=== PATIENT | female | born 1985 | race Caucasian/White ===

== ENCOUNTER 2016-12-17 10:35 | Inpatient (IN) | payer BC ==
--- NOTE | 2016-12-17 11:13 | PCM.LDHP ---
L&D History of Present Illness - General Date of Service: 12/17/16 Admit Problem/Dx: Admission Diagnosis/Problem Admission Diagnosis/Problem Source of Information: Patient History Limitations: Reports: No Limitations - History of Present Illness Introduction:: 31-year-old to 0 to JONATAN 01/01/17 estimated gestational age 37 weeks 6 days lives an [place] presented to labor and delivery having contractions every 2-3 minutes GBS is positive blood type O positive, antibody screen negative, hemoglobin hematocrit on 06/07/16 14.5/40.9, platelets 251,000, rubella immune, hep B surface antigen nonreactive HIV negative GC and chlamydia not detected. Urine culture normal. Cervix 2-3 cm dilated 50% effaced posterior soft? Cephalic presentation floating confirmed by bedside ultrasound Improves with: Reports: None Worsens with: Reports: None Associated Symptoms: Reports: N Past Medical History : 3 Para: 0 (0202) H&P Review of Systems - Review of Systems: Review Of Systems: See Below General: Reports: No Symptoms HEENT: Reports: No Symptoms Pulmonary: Reports: No Symptoms Cardiovascular: Reports: No Symptoms Gastrointestinal: Reports: No Symptoms Genitourinary: Reports: No Symptoms Musculoskeletal: Reports: No Symptoms Skin: Reports: No Symptoms Psychiatric: Reports: No Symptoms Neurological: Reports: No Symptoms Hematologic/Lymphatic: Reports: No Symptoms Immunologic: Reports: No Symptoms L&D Exam - Exam Exam: See Below - OB Specific Fundal Height In cm: 37 Contraction Duration (sec): 60 Contraction Frequency (min): 3 Contraction Intensity: Mild to Moderate Movement: Active Heart Tones: Present Heart Tones per Min: 140 Heart Rate (FHR) Variability: Moderate (6-25 bmp) Presentation: Vertex - Pearce Score Pearce Score Cervix Position: Posterior Pearce Score Consistency: Soft Pearce Score Effacement: 31-50% Pearce Score Dilation: 1-2 cm Pearce Score 's Station: -3 Pearce Score Total: 4 - Exam General: Alert, Oriented HEENT: Conjunctiva Clear, Mucosa Moist & [place], PERRLA Neck: Supple, Trachea Midline Lungs: Clear to Auscultation, Normal Respiratory Effort Cardiovascular: Regular Rate, Regular Rhythm GI/Abdominal Exam: Normal Bowel Sounds, Soft, Non-Tender, No Organomegaly, No Distention, No Abnormal Bruit, No Mass, Pelvis Stable Genitourinary: Normal external exam, Normal bimanual exam, Normal speculum exam Back Exam: Normal Inspection, Full Range of Motion Extremities: Normal Inspection, Normal Range of Motion, Non-Tender, No Pedal Edema, Normal Capillary Refill Skin: Warm, Dry, Intact Psychiatric: Alert, Normal Affect, Normal Mood - Problem List (1) 37 weeks gestation of SNOMED Code(s): 85219498 ICD Code: Z3A.37 - 37 WEEKS GESTATION OF Status: Acute Current Visit: Yes (2) Carrier of group B Streptococcus SNOMED Code(s): 2556438799186 ICD Code: Z22.330 - CARRIER OF GROUP B STREPTOCOCCUS Status: Acute Current Visit: Yes (3) History of delivery, currently in third trimester SNOMED Code(s): 46298406, 29457781 ICD Code: O09.213 - SUPRVSN OF PREG W HISTORY OF PRE-TERM LABOR, THIRD TRIMESTER Status: Acute Current Visit: Yes Problem List Initiated/Reviewed/Updated: No Assessment/Plan Comment:: Will watch patient to see if contractions persist and since she lives an [place] will need to stay here through the night to make sure no problems.
[2016-12-17] MEDS ORDERED: Acetaminophen 325 MG Tab PO PRN (11:17)
[2016-12-17] MEDS ORDERED: Sodium Chloride 0.9% 10 ML Syringe FLUSH PRN ×2 (11:17→15:14)
[2016-12-17] MEDS ORDERED: Ondansetron 4 MG/2 ML SDV IVPUSH PRN ×2 (11:17→13:50)
[2016-12-17] MEDS ORDERED: Lactated Ringers 500 ML IV ONE (11:36)
[2016-12-17] MEDS ORDERED: Ampicillin 2 GM in Sodium Chloride 0.9% 100 ML IV ONE (12:00)
--- NOTE | 2016-12-17 13:35 | PCM.PREANE ---
Preanesthetic Assessment - Procedure Proposed Procedure: Labor Epidural - Anesthesia/Transfusion/Family Hx Anesthesia History: Prior Anesthesia Without Reaction Family History of Anesthesia Reaction: No Transfusion History: No Prior Transfusion(s) - Review of Systems General: No Symptoms Pulmonary: No Symptoms Cardiovascular: No Symptoms Gastrointestinal: No Symptoms Neurological: No Symptoms Other: Reports: None - Physical Assessment NPO Status Date: 12/17/16 Pulse: 84 O2 Sat by Pulse Oximetry: 96 Respiratory Rate: 20 Blood Pressure: 106/57 Temperature: 37.0 C Height: 1.57 m Weight: 68.765 kg ASA Class: 2 Mental Status: Alert & Oriented x3 Airway Class: Mallampati = 2 Dentition: Reports: Normal Dentition Thyro-Mental Finger Breadths: 3 Mouth Opening Finger Breadths: 3 ROM/Head Extension: Full Lungs: Clear to Auscultation, Normal Respiratory Effort Cardiovascular: Regular Rate, Regular Rhythm - Lab Values: Laboratory Last Values WBC 14.85 K/mm3 (3.98-10.04) H 12/17/16 11:30 RBC 3.91 M/mm3 (3.98-5.22) L 12/17/16 11:30 Hgb 11.7 gm/L (11.2-15.7) 12/17/16 11:30 Hct 34.8 % (34.1-44.9) 12/17/16 11:30 MCV 89.0 fl (79.4-94.8) 12/17/16 11:30 MCH 29.9 pg (25.6-32.2) 12/17/16 11:30 MCHC 33.6 g/dl (32.2-35.5) 12/17/16 11:30 RDW Std Deviation 42.2 fL (36.4-46.3) 12/17/16 11:30 Plt Count 302 K/mm3 (182-369) 12/17/16 11:30 MPV 9.9 fl (9.4-12.3) 12/17/16 11:30 Neut % (Auto) 65.6 % (34.0-71.1) 12/17/16 11:30 Lymph % (Auto) 23.9 % (19.3-51.7) 12/17/16 11:30 [place] % (Auto) 8.6 % (4.7-12.5) 12/17/16 11:30 Eos % (Auto) 0.9 (0.7-5.8) 12/17/16 11:30 Baso % (Auto) 0.3 % (0.1-1.2) 12/17/16 11:30 Neut # (Auto) 9.74 K/mm3 (1.56-6.13) H 12/17/16 11:30 Lymph # (Auto) 3.55 K/mm3 (1.18-3.74) 12/17/16 11:30 [place] # (Auto) 1.28 K/mm3 (0.24-0.36) H 12/17/16 11:30 Eos # (Auto) 0.14 K/mm3 (0.04-0.36) 12/17/16 11:30 Baso # (Auto) 0.04 K/mm3 (0.01-0.08) 12/17/16 11:30 Blood Type O POSITIVE 12/17/16 11:30 Gel Antibody Screen Negative 12/17/16 11:30 - Allergies Allergies/Adverse Reactions: Allergies Allergy/AdvReac Type Severity Reaction Status Date / Time No Known Allergies Allergy Verified 12/17/16 12:21 - Blood Blood Available: No Product(s) Available: None - Acknowledgements Anesthesia Type Planned: Epidural Pt an Appropriate Candidate for the Planned Anesthesia: Yes Alternatives and Risks of Anesthesia Discussed w Pt/Guardian: Yes Pt/Guardian Understands and Agrees with Anesthesia Plan: Yes PreAnesthesia Questionnaire - SUBSTANCE USE Smoking Status *Q: Never Smoker Tobacco Use Within Last Twelve Months: No Second Hand Smoke Exposure: No Recreational Drug Use History: No - HOME MEDS Home Medications: Home Meds Vit W-Ca,Fe,FA(<1 mg) [ Vitamins] 1 tab PO DAILY 12/17/16 [ History] - CURRENT (IN HOUSE) MEDS Current Meds: Current Medications Acetaminophen (Tylenol) 650 mg PO Q4H PRN PRN Reason: Pain (mild 1-3) Lactated Ringer's (Ringers, Lactated) 1,000 mls @ 125 mls/hr IV ASDIRECTED NORA Ampicillin Sodium 1 gm/ Sodium (Chloride) 100 mls @ 200 mls/hr IV Q4H NORA Ondansetron HCl (Zofran) 4 mg IVPUSH Q4H PRN PRN Reason: Nausea/Vomiting Sodium Chloride (Saline Flush) 10 ml FLUSH ASDIRECTED PRN PRN Reason: Keep Vein Open Discontinued Medications Ampicillin Sodium 2 gm/ Sodium (Chloride) 100 mls @ 200 mls/hr IV ONETIME ONE Stop: 12/17/16 12:29 Lactated Ringer's (Ringers, Lactated) 500 mls @ 500 mls/hr IV .BOLUS ONE Stop: 12/17/16 12:35
[2016-12-17] MEDS ORDERED: diphenhydrAMINE 50 MG/ML SDV IVPUSH PRN (13:50)
[2016-12-17] MEDS ORDERED: ePHEDrine 50 MG/ML SDV IVPUSH PRN (13:50)
[2016-12-17] MEDS ORDERED: fentaNYL 100 MCG/2 ML SDV EPIDUR PRN (13:50)
[2016-12-17] MEDS ORDERED: Ampicillin 2 GM Vial ONE (13:51)
[2016-12-17] MEDS ORDERED: Sodium Chloride 0.9% 100 ML ONE (13:51)
[2016-12-17] MEDS ORDERED: Bupivacaine/fentaNYL/NS 100 ML Bag EPIDUR SCH (14:00)
[2016-12-17] MEDS: Lactated Ringers 1,000 ML IV SCH ×2 (14:17→14:51)
[2016-12-17] MEDS ORDERED: Lactated Ringers 1,000 ML IV SCH (15:15)
--- NOTE | 2016-12-17 15:47 | PCM.SN ---
- Free Text/Narrative Note: Amniotomy at 1543 hrs. Sunday12/17/16 clear fluid heart tones category 1 before and after amniotomy cephalic presentation at 0 station, complete.
[2016-12-17] MEDS ORDERED: Oxytocin 10 Units/1 ML SDV ONE (15:58)
[2016-12-17] MEDS ORDERED: Ampicillin 1 GM in Sodium Chloride 0.9% 100 ML IV SCH (16:00)
[2016-12-17] MEDS ORDERED: Oxytocin/Lactated Ringers 10 UNIT/1,000 ML BAG IV SCH (16:15)
--- NOTE | 2016-12-17 16:33 | PCM.DEL ---
L & D Note - General Info Date of Service: 12/17/16 Mother's Due Date: 01/01/17 - Delivery Note Labor: Spontaneous, Augmented by ARM (When patient was complete at -1/0 station amniotomy performed clear fluid) Delivery Outcome: Livebirth (Male liveborn Sunday12/17/2016 at 1611 hrs. MONTSE Apgars 8/9 30//30 grams 6 pounds 14.4 ounces) Delivery Method: Spontaneous Vaginal Delivery Delivery Mode: Spontaneous Presentation: Left Occiput Anterior (MONTSE) Nuchal Cord: None Prep: Povidone-Iodine (Betadine Anesthesia Type: Epidural Episiotomy Type: None Laceration: 1st Degree (Midline approximately 2.5 cm in length) Suture type: Other (Monocryl times one) Suture size: 3-0 Placenta: Intact, Spontaneous (Delivered spontaneously 1617 hrs. Sunday) Cord: 3 Vessels ( eccentric cord insertion intact examined discarded) Estimated Blood Loss: 250 Resuscitation Needed: No : Suctioned, Bulb Syringe, Stimulated, Warmed, [place] Used, Warmer Used Provider: Benji Oneil Score 1 min: 8 Score 5 min: 9 - Patient Data Vitals - Most Recent: Last Vital Signs Temp 98.6 F 12/17/16 13:47 Pulse 84 12/17/16 13:47 Resp 20 12/17/16 13:47 BP 106/57 L 12/17/16 13:47 Pulse Ox 96 12/17/16 13:47 Weight - Most Recent: 151 lb 9.6 oz Lab Results Last 24 Hours: Laboratory Results - last 24 hr 12/17/16 12/17/16 Range/Units 11:30 11:30 WBC 14.85 H (3.98-10.04) K/mm3 RBC 3.91 L (3.98-5.22) M/mm3 Hgb 11.7 (11.2-15.7) gm/L Hct 34.8 (34.1-44.9) % MCV 89.0 (79.4-94.8) fl MCH 29.9 (25.6-32.2) pg MCHC 33.6 (32.2-35.5) g/dl RDW Std Deviation 42.2 (36.4-46.3) fL Plt Count 302 (182-369) K/mm3 MPV 9.9 (9.4-12.3) fl Neut % (Auto) 65.6 (34.0-71.1) % Lymph % (Auto) 23.9 (19.3-51.7) % [place] % (Auto) 8.6 (4.7-12.5) % Eos % (Auto) 0.9 (0.7-5.8) Baso % (Auto) 0.3 (0.1-1.2) % Neut # (Auto) 9.74 H (1.56-6.13) K/mm3 Lymph # (Auto) 3.55 (1.18-3.74) K/mm3 [place] # (Auto) 1.28 H (0.24-0.36) K/mm3 Eos # (Auto) 0.14 (0.04-0.36) K/mm3 Baso # (Auto) 0.04 (0.01-0.08) K/mm3 Blood Type O POSITIVE Gel Antibody Screen Negative Med Orders - Current: Current Medications Acetaminophen (Tylenol) 650 mg PO Q4H PRN PRN Reason: Pain (mild 1-3) Diphenhydramine HCl (Benadryl) 25 mg IVPUSH Q6H PRN PRN Reason: Pruritis Ephedrine Sulfate (Ephedrine Sulfate) 5 mg IVPUSH ASDIRECTED PRN PRN Reason: Hypotension Fentanyl (Sublimaze) 100 mcg EPIDUR Q3H PRN PRN Reason: Pain Last Admin: 12/17/16 14:33 Dose: 100 mcg Fentanyl/Bupivacaine HCl (Fentanyl/Bupivacaine/Ns 2 Mcg-0.125% 100 Ml) 100 ml EPIDUR ASDIRECTED [facility] Last Admin: 12/17/16 14:34 Dose: 100 ml Lactated Ringer's (Ringers, Lactated) 1,000 mls @ 125 mls/hr IV ASDIRECTED [facility] Last Admin: 12/17/16 14:51 Dose: 999 mls/hr Ampicillin Sodium 1 gm/ Sodium (Chloride) 100 mls @ 200 mls/hr IV Q4H NORA Lactated Ringer's (Ringers, Lactated) 1,000 mls @ 100 mls/hr IV ASDIRECTED [facility] Oxytocin/Lactated Ringer's (Pitocin In Lr 10 Units/1,000 Ml) 10 unit in 1,000 mls @ 3,000 mls/hr IV ASDIRECTED NORA; 500 MUNITS/MIN PRN Reason: Protocol Ondansetron HCl (Zofran) 4 mg IVPUSH Q4H PRN PRN Reason: Nausea/Vomiting Ondansetron HCl (Zofran) 4 mg IVPUSH ONETIME PRN PRN Reason: Nausea/Vomiting Prenat Multivit/[place]/Iron/Folic Ac ( Plus Iron) 1 each PO DAILY NORA Sodium Chloride (Saline Flush) 10 ml FLUSH ASDIRECTED PRN PRN Reason: Keep Vein Open Sodium Chloride (Saline Flush) 10 ml FLUSH ASDIRECTED PRN PRN Reason: Keep Vein Open Discontinued Medications Ampicillin Sodium (Ampicillin) Confirm Administered Dose 2 gm .ROUTE .STK-MED ONE Stop: 12/17/16 13:52 Last Admin: 12/17/16 14:21 Dose: Not Given Ampicillin Sodium 2 gm/ Sodium (Chloride) 100 mls @ 200 mls/hr IV ONETIME ONE Stop: 12/17/16 12:29 Last Admin: 12/17/16 14:00 Dose: 200 mls/hr Lactated Ringer's (Ringers, Lactated) 500 mls @ 500 mls/hr IV .BOLUS ONE Stop: 12/17/16 12:35 Last Admin: 12/17/16 12:25 Dose: 500 mls/hr Sodium Chloride (Normal Saline) Confirm Administered Dose 100 mls @ as directed .ROUTE .STK-MED ONE Stop: 12/17/16 13:52 Last Admin: 12/17/16 14:21 Dose: Not Given Oxytocin (Pitocin) Confirm Administered Dose 10 unit .ROUTE .STK-MED ONE Stop: 12/17/16 15:59 Last Admin: 12/17/16 16:14 Dose: 10 unit - Problem List & Annotations (1) 37 weeks gestation of SNOMED Code(s): 31094576 Code(s): Z3A.37 - 37 WEEKS GESTATION OF Status: Acute Current Visit: Yes (2) Carrier of group B Streptococcus SNOMED Code(s): 5430904003887 Code(s): Z22.330 - CARRIER OF GROUP B STREPTOCOCCUS Status: Acute Current Visit: Yes (3) History of delivery, currently in third trimester SNOMED Code(s): 50418352, 67588029 Code(s): O09.213 - SUPRVSN OF PREG W HISTORY OF PRE-TERM LABOR, THIRD TRIMESTER Status: Acute Current Visit: Yes (4) First degree laceration of perineum, delivered, current hospitalization SNOMED Code(s): 023614096 Code(s): O70.0 - FIRST DEGREE PERINEAL LACERATION DURING DELIVERY Status: Acute Current Visit: Yes - Problem List Review Problem List Initiated/Reviewed/Updated: No - My Orders Last 24 Hours: My Active Orders 12/17/16 11:17 Patient Status [ADT] Routine Non Stress Test [RC] PER UNIT ROUTINE Vital Signs [RC] PER UNIT ROUTINE Acetaminophen [Tylenol] 650 mg PO Q4H PRN Ondansetron [Zofran] 4 mg IVPUSH Q4H PRN Sodium Chloride 0.9% [Saline Flush] 10 ml FLUSH ASDIRECTED PRN Electronic Heart Tones Ext w TOCO [WOMSER] Routine Peripheral IV Insertion Adult [OM.PC] Urgent Resuscitation Status Routine 12/17/16 11:19 Heart Tones [RC] ASDIRECTED Peripheral IV Care [RC] . DIRECTED 12/17/16 11:30 Lactated Ringers [Ringers, Lactated] 1,000 ml IV ASDIRECTED 12/17/16 13:45 Patient Status [ADT] Routine 12/17/16 15:14 Activity as Tolerated [RC] PFP Communication Order [RC] ASDIRECTED Heart Tones [RC] ASDIRECTED Notify Provider [RC] PFP Notify Provider [RC] PRN Peripheral IV Care [RC] . DIRECTED Vital Signs [RC] PER UNIT ROUTINE Sodium Chloride 0.9% [Saline Flush] 10 ml FLUSH ASDIRECTED PRN Electronic Heart Tones Ext w TOCO [WOMSER] Routine Electronic Heart Tones Internal [WOMSER] Per Unit Routine Peripheral IV Insertion Adult [OM.PC] Routine 12/17/16 15:15 Lactated Ringers [Ringers, Lactated] 1,000 ml IV ASDIRECTED 12/17/16 16:00 Ampicillin 1 gm Sodium Chloride 0.9% [Normal Saline] 100 ml IV Q4H 12/17/16 16:15 Oxytocin/Lactated Ringers [Pitocin in LR 10 Units/1,000 ML] 10 unit in 1,000 ml IV ASDIRECTED 12/17/16 Lunch Clear Liquid Diet [DIET] 12/18/16 09:00 Vit with Ca/FA/Iron [ Plus Iron] 1 each PO DAILY - Plan Plan:: Will watch patient to see if contractions persist and since she lives an [place] will need to stay here through the night to make sure no problems.
[2016-12-17] MEDS ORDERED: Docusate Sodium 100 MG Cap PO PRN (16:39)
[2016-12-17] MEDS ORDERED: Witch Hazel Medicated Pads 100/Jar TOP PRN (16:39)
[2016-12-17] MEDS ORDERED: Lanolin 100% Cream 7 GM Tube TOP PRN (16:39)
[2016-12-17] MEDS ORDERED: Benzocaine/Menthol 20%-0.5% Spray 56 GM Canister TOP PRN (16:39)
[2016-12-17] MEDS: Ibuprofen 600 MG Tab PO PRN (21:48)
[2016-12-17] MEDS ORDERED: Bupivacaine 0.25% 10 ML SDV ONE (22:22)
[2016-12-17] MEDS: Acetaminophen 325 MG Tab PO PRN (23:08)
[2016-12-18] MEDS: Ibuprofen 600 MG Tab PO PRN ×3 (02:25→20:34)
[2016-12-18] MEDS: Acetaminophen 325 MG Tab PO PRN ×2 (04:15→08:18)
--- NOTE | 2016-12-18 08:02 | PCM.SN ---
- Free Text/Narrative Note: day 1 Afebrile no heavy vaginal bleeding uterus involuting normally no leg cramping probably home tomorrow.
--- NOTE | 2016-12-18 08:35 | PCM48HPAN ---
Post Anesthesia Note - EVALUATION WITHIN 48HRS OF ANESTHETIC Vital Signs in Normal Range: Yes Patient Participated in Evaluation: Yes Respiratory Function Stable: Yes Airway Patent: Yes Cardiovascular Function Stable: Yes Hydration Status Stable: Yes Pain Control Satisfactory: Yes Nausea and Vomiting Control Satisfactory: Yes Mental Status Recovered: Yes
[2016-12-18] MEDS ORDERED: Prenatal Multivitamin with Calcium/Folic Acid/Iron Tab PO SCH (09:00)
[2016-12-19] MEDS: Ibuprofen 600 MG Tab PO PRN ×3 (04:32→13:34)
--- NOTE | 2016-12-19 09:54 | PCM.DCSUM1 ---
Discharge Summary - Hospital Course Free Text/Narrative:: [facility] LIVE L/D Delivery Note Patient Name: CARA WILLIAM Date of : 85 Patient Status: Inpatient Attending Provider: Benji Oneil Date: 12/17/16 16:28 Initialization Date: 12/17/16 16:28 L & D Note - General Info Date of Service: 12/17/16 Mother's Due Date: 01/01/17 - Delivery Note Labor: Spontaneous, Augmented by ARM (When patient was complete at -1/0 station amniotomy performed clear fluid) Delivery Outcome: Livebirth (Male liveborn Sunday12/17/2016 at 1611 hrs. MONTSE Apgars 8/9 30/30 grams 6 pounds 14.4 ounces) Infant Delivery Method: Spontaneous Vaginal Delivery Infant Delivery Mode: Spontaneous Presentation: Left Occiput Anterior (MONTSE) Nuchal Cord: None Prep: Povidone-Iodine (Betadine Anesthesia Type: Epidural Episiotomy Type: None Laceration: 1st Degree (Midline approximately 2.5 cm in length) Suture type: Other (Monocryl times one) Suture size: 3-0 Placenta: Intact, Spontaneous (Delivered spontaneously 1617 hrs. Sunday) Cord: 3 Vessels ( eccentric cord insertion intact examined discarded) Estimated Blood Loss: 250 Resuscitation Needed: No Mounds: Suctioned, Bulb Syringe, Stimulated, Warmed, [place] Used, Warmer Used Provider: Benji Oneil Score 1 min: 8 Score 5 min: 9 - Patient Data Vitals - Most Recent: Last Vital Signs Temp 98.6 F 12/17/16 13:47 Pulse 84 12/17/16 13:47 Resp 20 12/17/16 13:47 BP 106/57 L 12/17/16 13:47 Pulse Ox 96 12/17/16 13:47 Weight - Most Recent: 151 lb 9.6 oz Lab Results Last 24 Hours: Laboratory Results - last 24 hr 12/17/16 12/17/16 Range/Units 11:30 11:30 WBC 14.85 H (3.98-10.04) K/mm3 RBC 3.91 L (3.98-5.22) M/mm3 Hgb 11.7 (11.2-15.7) gm/L Hct 34.8 (34.1-44.9) % MCV 89.0 (79.4-94.8) fl MCH 29.9 (25.6-32.2) pg MCHC 33.6 (32.2-35.5) g/dl RDW Std Deviation 42.2 (36.4-46.3) fL Plt Count 302 (182-369) K/mm3 MPV 9.9 (9.4-12.3) fl Neut % (Auto) 65.6 (34.0-71.1) % Lymph % (Auto) 23.9 (19.3-51.7) % Alfalfa % (Auto) 8.6 (4.7-12.5) % Eos % (Auto) 0.9 (0.7-5.8) Baso % (Auto) 0.3 (0.1-1.2) % Neut # (Auto) 9.74 H (1.56-6.13) K/mm3 Lymph # (Auto) 3.55 (1.18-3.74) K/mm3 Alfalfa # (Auto) 1.28 H (0.24-0.36) K/mm3 Eos # (Auto) 0.14 (0.04-0.36) K/mm3 Baso # (Auto) 0.04 (0.01-0.08) K/mm3 Blood Type O POSITIVE Gel Antibody Screen Negative Med Orders - Current: Current Medications Acetaminophen (Tylenol) 650 mg PO Q4H PRN PRN Reason: Pain (mild 1-3) Diphenhydramine HCl (Benadryl) 25 mg IVPUSH Q6H PRN PRN Reason: Pruritis Ephedrine Sulfate (Ephedrine Sulfate) 5 mg IVPUSH ASDIRECTED PRN PRN Reason: Hypotension Fentanyl (Sublimaze) 100 mcg EPIDUR Q3H PRN PRN Reason: Pain Last Admin: 12/17/16 14:33 Dose: 100 mcg Fentanyl/Bupivacaine HCl (Fentanyl/Bupivacaine/Ns 2 Mcg-0.125% 100 Ml) 100 ml EPIDUR ASDIRECTED NORA Last Admin: 12/17/16 14:34 Dose: 100 ml Lactated Ringer's (Ringers, Lactated) 1,000 mls @ 125 mls/hr IV ASDIRECTED NORA Last Admin: 12/17/16 14:51 Dose: 999 mls/hr Ampicillin Sodium 1 gm/ Sodium (Chloride) 100 mls @ 200 mls/hr IV Q4H NORA Lactated Ringer's (Ringers, Lactated) 1,000 mls @ 100 mls/hr IV ASDIRECTED [facility] Oxytocin/Lactated Ringer's (Pitocin In Lr 10 Units/1,000 Ml) 10 unit in 1,000 mls @ 3,000 mls/hr IV ASDIRECTED NORA; 500 MUNITS/MIN PRN Reason: Protocol Ondansetron HCl (Zofran) 4 mg IVPUSH Q4H PRN PRN Reason: Nausea/Vomiting Ondansetron HCl (Zofran) 4 mg IVPUSH ONETIME PRN PRN Reason: Nausea/Vomiting Prenat Multivit/[place]/Iron/Folic Ac ( Plus Iron) 1 each PO DAILY [facility] Sodium Chloride (Saline Flush) 10 ml FLUSH ASDIRECTED PRN PRN Reason: Keep Vein Open Sodium Chloride (Saline Flush) 10 ml FLUSH ASDIRECTED PRN PRN Reason: Keep Vein Open Discontinued Medications Ampicillin Sodium (Ampicillin) Confirm Administered Dose 2 gm .ROUTE .STK-MED ONE Stop: 12/17/16 13:52 Last Admin: 12/17/16 14:21 Dose: Not Given Ampicillin Sodium 2 gm/ Sodium (Chloride) 100 mls @ 200 mls/hr IV ONETIME ONE Stop: 12/17/16 12:29 Last Admin: 12/17/16 14:00 Dose: 200 mls/hr Lactated Ringer's (Ringers, Lactated) 500 mls @ 500 mls/hr IV .BOLUS ONE Stop: 12/17/16 12:35 Last Admin: 12/17/16 12:25 Dose: 500 mls/hr Sodium Chloride (Normal Saline) Confirm Administered Dose 100 mls @ as directed .ROUTE .STK-MED ONE Stop: 12/17/16 13:52 Last Admin: 12/17/16 14:21 Dose: Not Given Oxytocin (Pitocin) Confirm Administered Dose 10 unit .ROUTE .STK-MED ONE Stop: 12/17/16 15:59 Last Admin: 12/17/16 16:14 Dose: 10 unit - Problem List & Annotations (1) 37 weeks gestation of SNOMED Code(s): 65093376 Code(s): Z3A.37 - 37 WEEKS GESTATION OF Status: Acute Current Visit: Yes (2) Carrier of group B Streptococcus SNOMED Code(s): 2960367859331 Code(s): Z22.330 - CARRIER OF GROUP B STREPTOCOCCUS Status: Acute Current Visit: Yes (3) History of delivery, currently in third trimester SNOMED Code(s): 62480580, 12902665 Code(s): O09.213 - SUPRVSN OF PREG W HISTORY OF PRE-TERM LABOR, THIRD TRIMESTER Status: Acute Current Visit: Yes (4) First degree laceration of perineum, delivered, current hospitalization SNOMED Code(s): 606358294 Code(s): O70.0 - FIRST DEGREE PERINEAL LACERATION DURING DELIVERY Status: Acute Current Visit: Yes - Problem List Review Problem List Initiated/Reviewed/Updated: No - My Orders Last 24 Hours: My Active Orders 12/17/16 11:17 Patient Status [ADT] Routine Non Stress Test [RC] PER UNIT ROUTINE Vital Signs [RC] PER UNIT ROUTINE Acetaminophen [Tylenol] 650 mg PO Q4H PRN Ondansetron [Zofran] 4 mg IVPUSH Q4H PRN Sodium Chloride 0.9% [Saline Flush] 10 ml FLUSH ASDIRECTED PRN Electronic Heart Tones Ext w TOCO [WOMSER] Routine Peripheral IV Insertion Adult [OM.PC] Urgent Resuscitation Status Routine 12/17/16 11:19 Heart Tones [RC] ASDIRECTED Peripheral IV Care [RC] . DIRECTED 12/17/16 11:30 Lactated Ringers [Ringers, Lactated] 1,000 ml IV ASDIRECTED 12/17/16 13:45 Patient Status [ADT] Routine 12/17/16 15:14 Activity as Tolerated [RC] PFP Communication Order [RC] ASDIRECTED Heart Tones [RC] ASDIRECTED Notify Provider [RC] PFP Notify Provider [RC] PRN Peripheral IV Care [RC] . DIRECTED Vital Signs [RC] PER UNIT ROUTINE Sodium Chloride 0.9% [Saline Flush] 10 ml FLUSH ASDIRECTED PRN Electronic Heart Tones Ext w TOCO [WOMSER] Routine Electronic Heart Tones Internal [WOMSER] Per Unit Routine Peripheral IV Insertion Adult [OM.PC] Routine 12/17/16 15:15 Lactated Ringers [Ringers, Lactated] 1,000 ml IV ASDIRECTED 12/17/16 16:00 Ampicillin 1 gm Sodium Chloride 0.9% [Normal Saline] 100 ml IV Q4H 12/17/16 16:15 Oxytocin/Lactated Ringers [Pitocin in LR 10 Units/1,000 ML] 10 unit in 1,000 ml IV ASDIRECTED 12/17/16 Lunch Clear Liquid Diet [DIET] 12/18/16 09:00 Vit with Ca/FA/Iron [ Plus Iron] 1 each PO DAILY - Plan Plan:: Will watch patient to see if contractions persist and since she lives an [place] will need to stay here through the night to make sure no problems. HPI Initial Comments: [facility] LIVE L/D Delivery Note Patient Name: CARA WILLIAM Date of : 85 Patient Status: Inpatient Attending Provider: Benji Oneil Date: 12/17/16 16:28 Initialization Date: 12/17/16 16:28 L & D Note - General Info Date of Service: 12/17/16 Mother's Due Date: 01/01/17 - Delivery Note Labor: Spontaneous, Augmented by ARM (When patient was complete at -1/0 station amniotomy performed clear fluid) Delivery Outcome: Livebirth (Male liveborn Sunday12/17/2016 at 1611 hrs. MONTSE Apgars 8/9 30/1/30 grams 6 pounds 14.4 ounces) Infant Delivery Method: Spontaneous Vaginal Delivery Infant Delivery Mode: Spontaneous Presentation: Left Occiput Anterior (MONTSE) Nuchal Cord: None Prep: Povidone-Iodine (Betadine Anesthesia Type: Epidural Episiotomy Type: None Laceration: 1st Degree (Midline approximately 2.5 cm in length) Suture type: Other (Monocryl times one) Suture size: 3-0 Placenta: Intact, Spontaneous (Delivered spontaneously 1617 hrs. Sunday) Cord: 3 Vessels ( eccentric cord insertion intact examined discarded) Estimated Blood Loss: 250 Resuscitation Needed: No Mounds: Suctioned, Bulb Syringe, Stimulated, Warmed, [place] Used, Warmer Used Provider: Benji Oneil Score 1 min: 8 Score 5 min: 9 - Patient Data Vitals - Most Recent: Last Vital Signs Temp 98.6 F 12/17/16 13:47 Pulse 84 12/17/16 13:47 Resp 20 12/17/16 13:47 BP 106/57 L 12/17/16 13:47 Pulse Ox 96 12/17/16 13:47 Weight - Most Recent: 151 lb 9.6 oz Lab Results Last 24 Hours: Laboratory Results - last 24 hr 12/17/16 12/17/16 Range/Units 11:30 11:30 WBC 14.85 H (3.98-10.04) K/mm3 RBC 3.91 L (3.98-5.22) M/mm3 Hgb 11.7 (11.2-15.7) gm/L Hct 34.8 (34.1-44.9) % MCV 89.0 (79.4-94.8) fl MCH 29.9 (25.6-32.2) pg MCHC 33.6 (32.2-35.5) g/dl RDW Std Deviation 42.2 (36.4-46.3) fL Plt Count 302 (182-369) K/mm3 MPV 9.9 (9.4-12.3) fl Neut % (Auto) 65.6 (34.0-71.1) % Lymph % (Auto) 23.9 (19.3-51.7) % Alfalfa % (Auto) 8.6 (4.7-12.5) % Eos % (Auto) 0.9 (0.7-5.8) Baso % (Auto) 0.3 (0.1-1.2) % Neut # (Auto) 9.74 H (1.56-6.13) K/mm3 Lymph # (Auto) 3.55 (1.18-3.74) K/mm3 Alfalfa # (Auto) 1.28 H (0.24-0.36) K/mm3 Eos # (Auto) 0.14 (0.04-0.36) K/mm3 Baso # (Auto) 0.04 (0.01-0.08) K/mm3 Blood Type O POSITIVE Gel Antibody Screen Negative Med Orders - Current: Current Medications Acetaminophen (Tylenol) 650 mg PO Q4H PRN PRN Reason: Pain (mild 1-3) Diphenhydramine HCl (Benadryl) 25 mg IVPUSH Q6H PRN PRN Reason: Pruritis Ephedrine Sulfate (Ephedrine Sulfate) 5 mg IVPUSH ASDIRECTED PRN PRN Reason: Hypotension Fentanyl (Sublimaze) 100 mcg EPIDUR Q3H PRN PRN Reason: Pain Last Admin: 12/17/16 14:33 Dose: 100 mcg Fentanyl/Bupivacaine HCl (Fentanyl/Bupivacaine/Ns 2 Mcg-0.125% 100 Ml) 100 ml EPIDUR ASDIRECTED NORA Last Admin: 12/17/16 14:34 Dose: 100 ml Lactated Ringer's (Ringers, Lactated) 1,000 mls @ 125 mls/hr IV ASDIRECTED NORA Last Admin: 12/17/16 14:51 Dose: 999 mls/hr Ampicillin Sodium 1 gm/ Sodium (Chloride) 100 mls @ 200 mls/hr IV Q4H NORA Lactated Ringer's (Ringers, Lactated) 1,000 mls @ 100 mls/hr IV ASDIRECTED NORA Oxytocin/Lactated Ringer's (Pitocin In Lr 10 Units/1,000 Ml) 10 unit in 1,000 mls @ 3,000 mls/hr IV ASDIRECTED NORA; 500 MUNITS/MIN PRN Reason: Protocol Ondansetron HCl (Zofran) 4 mg IVPUSH Q4H PRN PRN Reason: Nausea/Vomiting Ondansetron HCl (Zofran) 4 mg IVPUSH ONETIME PRN PRN Reason: Nausea/Vomiting Prenat Multivit/[place]/Iron/Folic Ac ( Plus Iron) 1 each PO DAILY NORA Sodium Chloride (Saline Flush) 10 ml FLUSH ASDIRECTED PRN PRN Reason: Keep Vein Open Sodium Chloride (Saline Flush) 10 ml FLUSH ASDIRECTED PRN PRN Reason: Keep Vein Open Discontinued Medications Ampicillin Sodium (Ampicillin) Confirm Administered Dose 2 gm .ROUTE .STK-MED ONE Stop: 12/17/16 13:52 Last Admin: 12/17/16 14:21 Dose: Not Given Ampicillin Sodium 2 gm/ Sodium (Chloride) 100 mls @ 200 mls/hr IV ONETIME ONE Stop: 12/17/16 12:29 Last Admin: 12/17/16 14:00 Dose: 200 mls/hr Lactated Ringer's (Ringers, Lactated) 500 mls @ 500 mls/hr IV .BOLUS ONE Stop: 12/17/16 12:35 Last Admin: 12/17/16 12:25 Dose: 500 mls/hr Sodium Chloride (Normal Saline) Confirm Administered Dose 100 mls @ as directed .ROUTE .STK-MED ONE Stop: 12/17/16 13:52 Last Admin: 12/17/16 14:21 Dose: Not Given Oxytocin (Pitocin) Confirm Administered Dose 10 unit .ROUTE .STK-MED ONE Stop: 12/17/16 15:59 Last Admin: 12/17/16 16:14 Dose: 10 unit - Problem List & Annotations (1) 37 weeks gestation of SNOMED Code(s): 70069464 Code(s): Z3A.37 - 37 WEEKS GESTATION OF Status: Acute Current Visit: Yes (2) Carrier of group B Streptococcus SNOMED Code(s): 4020433896505 Code(s): Z22.330 - CARRIER OF GROUP B STREPTOCOCCUS Status: Acute Current Visit: Yes (3) History of delivery, currently in third trimester SNOMED Code(s): 55317826, 36150028 Code(s): O09.213 - SUPRVSN OF PREG W HISTORY OF PRE-TERM LABOR, THIRD TRIMESTER Status: Acute Current Visit: Yes (4) First degree laceration of perineum, delivered, current hospitalization SNOMED Code(s): 653474998 Code(s): O70.0 - FIRST DEGREE PERINEAL LACERATION DURING DELIVERY Status: Acute Current Visit: Yes - Problem List Review Problem List Initiated/Reviewed/Updated: No - My Orders Last 24 Hours: My Active Orders 12/17/16 11:17 Patient Status [ADT] Routine Non Stress Test [RC] PER UNIT ROUTINE Vital Signs [RC] PER UNIT ROUTINE Acetaminophen [Tylenol] 650 mg PO Q4H PRN Ondansetron [Zofran] 4 mg IVPUSH Q4H PRN Sodium Chloride 0.9% [Saline Flush] 10 ml FLUSH ASDIRECTED PRN Electronic Heart Tones Ext w TOCO [WOMSER] Routine Peripheral IV Insertion Adult [OM.PC] Urgent Resuscitation Status Routine 12/17/16 11:19 Heart Tones [RC] ASDIRECTED Peripheral IV Care [RC] . DIRECTED 12/17/16 11:30 Lactated Ringers [Ringers, Lactated] 1,000 ml IV ASDIRECTED 12/17/16 13:45 Patient Status [ADT] Routine 12/17/16 15:14 Activity as Tolerated [RC] PFP Communication Order [RC] ASDIRECTED Heart Tones [RC] ASDIRECTED Notify Provider [RC] PFP Notify Provider [RC] PRN Peripheral IV Care [RC] . DIRECTED Vital Signs [RC] PER UNIT ROUTINE Sodium Chloride 0.9% [Saline Flush] 10 ml FLUSH ASDIRECTED PRN Electronic Heart Tones Ext w TOCO [WOMSER] Routine Electronic Heart Tones Internal [WOMSER] Per Unit Routine Peripheral IV Insertion Adult [OM.PC] Routine 12/17/16 15:15 Lactated Ringers [Ringers, Lactated] 1,000 ml IV ASDIRECTED 12/17/16 16:00 Ampicillin 1 gm Sodium Chloride 0.9% [Normal Saline] 100 ml IV Q4H 12/17/16 16:15 Oxytocin/Lactated Ringers [Pitocin in LR 10 Units/1,000 ML] 10 unit in 1,000 ml IV ASDIRECTED 12/17/16 Lunch Clear Liquid Diet [DIET] 12/18/16 09:00 Vit with Ca/FA/Iron [ Plus Iron] 1 each PO DAILY - Plan Plan:: Will watch patient to see if contractions persist and since she lives [facility] will need to stay here through the night to make sure no problems. Brief History: [facility] LIVE . L/D Delivery Note. [facility]: [id number]. Date of : Patient Status: Inpatient. Attending Provider: Benji Oneil Number: [id number]. Date: 12/17/16 16:28Initialization Date: 12/17/16 16:28. L & D Note. - General Info. Date of Service: 12/17/16. Mother's Due Date: 01/01/17. - Delivery Note. Labor: Spontaneous, Augmented by ARM (When patient was complete at -1/0 station amniotomy performed clear fluid). Delivery Outcome : Livebirth (Male liveborn Sunday12/17/2016 at 1611 hrs. MONTSE Apgars 8/9 05/06/29 grams 6 pounds 14.4 ounces). Delivery Method: Spontaneous Vaginal Delivery. Delivery Mode: Spontaneous. Presentation: Left Occiput Anterior (MONTSE). Nuchal Cord: None. Prep: Povidone-Iodine (Betadine. Anesthesia Type: Epidural. Episiotomy Type: None. Laceration: 1st Degree ( Midline approximately 2.5 cm in length). Suture type: Other (Monocryl times one ). Suture size: 3-0. Placenta: Intact, Spontaneous (Delivered spontaneously 1617 hrs. Sunday12/17/2016). Cord: 3 Vessels ( eccentric cord insertion intact examined discarded). Estimated Blood Loss: 250. Resuscitation Needed: No. : Suctioned, Bulb Syringe, Stimulated, Warmed, [place] Used, Warmer Used. Provider: Benji Oneil. Score 1 min: 8. Score 5 min: 9. - Patient Data. Vitals - Most Recent: Last Vital Signs. Temp 98.6 F 12/17/16 13:47. Pulse 84 12/17/16 13:47. Resp 20 12/17/16 13: 47. BP 106/57 L 12/17/16 13:47. Pulse Ox 96 12/17/16 13:47. Weight - Most Recent: 151 lb 9.6 oz. Lab Results Last 24 Hours: Laboratory Results - last 24 hr. 12/18/1707Range/Units. 11:3011:30. WBC 14.85 H (3.98-10.04) K/ mm3. RBC 3.91 L (3.98-5.22) M/mm3. Hgb 11.7 (11.2-15.7) gm/L. Hct 34.8 ( 34.1-44.9) %. MCV 89.0 (79.4-94.8) fl. MCH 29.9 (25.6-32.2) pg. MCHC 33.6 (32.2-35.5) g/dl. RDW Std Deviation 42.2 (36.4-46.3) fL. Plt Count 302 (182- 369) K/mm3. MPV 9.9 (9.4-12.3) fl. Neut % (Auto) 65.6 (34.0-71.1) %. Lymph % (Auto) 23.9 (19.3-51.7) %. Alfalfa % (Auto) 8.6 (4.7-12.5) %. Eos % ( Auto) 0.9 (0.7-5.8). Baso % (Auto) 0.3 (0.1-1.2) %. Neut # (Auto) 9.74 H ( 1.56-6.13) K/mm3. Lymph # (Auto) 3.55 (1.18-3.74) K/mm3. Alfalfa # (Auto) 1.28 H (0.24-0.36) K/mm3. Eos # (Auto) 0.14 (0.04-0.36) K/mm3. Baso # (Auto) 0.04 (0.01-0.08) K/mm3. Blood Type O POSITIVE. Gel Antibody Screen Negative. Med Orders - Current: Current Medications. Acetaminophen (Tylenol) 650 mg PO Q4H PRN. PRN Reason: Pain (mild 1-3). Diphenhydramine HCl (Benadryl) 25 mg IVPUSH Q6H PRN. PRN Reason: Pruritis. Ephedrine Sulfate (Ephedrine Sulfate ) 5 mg IVPUSH ASDIRECTED PRN. PRN Reason: Hypotension. Fentanyl (Sublimaze) 100 mcg EPIDUR Q3H PRN. PRN Reason: Pain. Last Admin: 12/17/16 14:33 Dose: 100 mcg. Fentanyl/Bupivacaine HCl (Fentanyl/Bupivacaine/Ns 2 Mcg-0.125% 100 Ml ) 100 ml EPIDUR ASDIRECTED NORA. Last Admin: 12/17/16 14:34 Dose: 100 ml. Lactated Ringer's (Ringers, Lactated) 1,000 mls @ 125 mls/hr IV ASDIRECTED NORA. Last Admin: 12/17/16 14:51 Dose: 999 mls/hr. Ampicillin Sodium 1 gm/ Sodium (Chloride) 100 mls @ 200 mls/hr IV Q4H NORA. Lactated Ringer's (Ringers , Lactated) 1,000 mls @ 100 mls/hr IV ASDIRECTED NORA. Oxytocin/Lactated Ringer 's (Pitocin In Lr 10 Units/1,000 Ml) 10 unit in 1,000 mls @ 3,000 mls/hr IV ASDIRECTED NORA; 500 MUNITS/MIN. PRN Reason: Protocol. Ondansetron HCl (Zofran ) 4 mg IVPUSH Q4H PRN. PRN Reason: Nausea/Vomiting. Ondansetron HCl (Zofran) 4 mg IVPUSH ONETIME PRN. PRN Reason: Nausea/Vomiting. Prenat Multivit/[place]/ Iron/Folic Ac ( Plus Iron) 1 each PO DAILY NORA. Sodium Chloride ( Saline Flush) 10 ml FLUSH ASDIRECTED PRN. PRN Reason: Keep Vein Open. Sodium Chloride (Saline Flush) 10 ml FLUSH ASDIRECTED PRN. PRN Reason: Keep Vein Open. Discontinued Medications. Ampicillin Sodium (Ampicillin) Confirm Administered Dose 2 gm .ROUTE .STK-MED ONE. Stop: 12/17/16 13:52. Last Admin: 12/17/16 14:21 Dose: Not Given. Ampicillin Sodium 2 gm/ Sodium (Chloride) 100 mls @ 200 mls/hr IV ONETIME ONE. Stop: 12/17/16 12:29. Last Admin: 14:00 Dose: 200 mls/hr. Lactated Ringer's (Ringers, Lactated) 500 mls @ 500 mls/hr IV .BOLUS ONE. Stop: 12/17/16 12:35. Last Admin: 12/17/16 12:25 Dose: 500 mls/hr. Sodium Chloride (Normal Saline) Confirm Administered Dose 100 mls @ as directed .ROUTE .STK-MED ONE. Stop: 12/17/16 13:52. Last Admin: 12/17/16 14:21 Dose: Not Given. Oxytocin (Pitocin) Confirm Administered Dose 10 unit .ROUTE .STK-MED ONE. Stop: 12/17/16 15:59. Last Admin: 12/17/16 16:14 Dose: 10 unit. - Problem List & Annotations. (1) 37 weeks gestation of . SNOMED Code(s): 90331698. Code(s): Z3A.37 - 37 WEEKS GESTATION OF Status: Acute Current Visit: Yes. (2) Carrier of group B Streptococcus. SNOMED Code(s): 2740995372774. Code(s): Z22.330 - CARRIER OF GROUP B STREPTOCOCCUS Status: Acute Current Visit: Yes. (3) History of delivery, currently in third trimester. SNOMED Code(s): 60530205, 39633776. Code(s): O09.213 - SUPRVSN OF PREG W HISTORY OF PRE-TERM LABOR, THIRD TRIMESTER Status: Acute Current Visit: Yes. (4) First degree laceration of perineum, delivered, current hospitalization. SNOMED Code(s): 624542288. Code(s): O70.0 - FIRST DEGREE PERINEAL LACERATION DURING DELIVERY Status: Acute Current Visit: Yes. - Problem List Review. Problem List Initiated/Reviewed/Updated: No. - My Orders. Last 24 Hours: My Active Orders. 12/17/16 11:17. Patient Status [ADT] Routine. Non Stress Test [ RC] PER UNIT ROUTINE. Vital Signs [RC] PER UNIT ROUTINE. Acetaminophen [ Tylenol] 650 mg PO Q4H PRN. Ondansetron [Zofran] 4 mg IVPUSH Q4H PRN. Sodium Chloride 0.9% [Saline Flush] 10 ml FLUSH ASDIRECTED PRN. Electronic Heart Tones Ext w TOCO [WOMSER] Routine. Peripheral IV Insertion Adult [ OM.PC] Urgent. Resuscitation Status Routine. 12/17/16 11:19. Heart Tones [RC] ASDIRECTED. Peripheral IV Care [RC] . DIRECTED. 12/17/16 11:30. Lactated Ringers [Ringers, Lactated] 1,000 ml IV ASDIRECTED. 12/17/16 13:45. Patient Status [ADT] Routine. 12/17/16 15:14. Activity as Tolerated [RC] PFP. Communication Order [RC] ASDIRECTED. Heart Tones [RC] ASDIRECTED. Notify Provider [RC] PFP. Notify Provider [RC] PRN. Peripheral IV Care [RC] . DIRECTED. Vital Signs [RC] PER UNIT ROUTINE. Sodium Chloride 0.9% [Saline Flush] 10 ml FLUSH ASDIRECTED PRN. Electronic Heart Tones Ext w TOCO [ WOMSER] Routine. Electronic Heart Tones Internal [WOMSER] Per Unit Routine. Peripheral IV Insertion Adult [OM.PC] Routine. 12/17/16 15:15. Lactated Ringers [Ringers, Lactated] 1,000 ml IV ASDIRECTED. 12/17/16 16:00. Ampicillin 1 gm Sodium Chloride 0.9% [Normal Saline] 100 ml IV Q4H. 12/17/16 16:15. Oxytocin/Lactated Ringers [Pitocin in LR 10 Units/1,000 ML] 10 unit in 1 ,000 ml IV ASDIRECTED. 12/17/16 Lunch. Clear Liquid Diet [DIET]. 12/18/16 09: 00. Vit with Ca/FA/Iron [ Plus Iron] 1 each PO DAILY. - Plan. Plan:: Will watch patient to see if contractions persist and since she lives [facility] will need to stay here through the night to make sure no problems. - Discharge Data Discharge Date: 12/19/16 (1600) Discharge Disposition: Home, Self-Care 01 Condition: Good - Discharge Diagnosis/Problem(s) (1) 37 weeks gestation of SNOMED Code(s): 01430624 ICD Code: Z3A.37 - 37 WEEKS GESTATION OF Status: Acute Current Visit: Yes (2) Carrier of group B Streptococcus SNOMED Code(s): 4806935205454 ICD Code: Z22.330 - CARRIER OF GROUP B STREPTOCOCCUS Status: Acute Current Visit: Yes (3) History of delivery, currently in third trimester SNOMED Code(s): 78431165, 80197812 ICD Code: O09.213 - SUPRVSN OF PREG W HISTORY OF PRE-TERM LABOR, THIRD TRIMESTER Status: Acute Current Visit: Yes (4) First degree laceration of perineum, delivered, current hospitalization SNOMED Code(s): 748726298 ICD Code: O70.0 - FIRST DEGREE PERINEAL LACERATION DURING DELIVERY Status: Acute Current Visit: Yes - Patient Summary/Data Complications: None Consults: None Hospital Course: Uneventful - Patient Instructions Diet: Regular Diet as Tolerated Driving: Do Not Drive (For 48 hours) Showering/Bathing: May Shower Notify Provider of: Fever, Increased Pain, Swelling and Redness, Drainage, Nausea and/or Vomiting - Discharge Plan Home Medications: Home Meds Vit W-Ca,Fe,FA(<1 mg) [ Vitamins] 1 tab PO DAILY 12/17/16 [ History] Acetaminophen [Tylenol] 650 mg PO Q6H PRN #0 tablet 12/19/16 [Rx] Benzocaine/Menthol [Dermoplast Pain Relief [place]] 1 spray TOP ASDIRECTED PRN #0 canister 12/19/16 [Rx] Docusate Sodium [Colace] 100 mg PO BID PRN #0 cap 12/19/16 [Rx] Ibuprofen [IJD: Ibuprofen] 200 - 600 mg PO Q6H PRN #0 tablet 12/19/16 [Rx] Referrals: Lo Garsia MD [Primary Care Provider] - (6 weeks) - Discharge Summary/Plan Comment DC Time >30 min.: No - Patient Data Vitals - Most Recent: Last Vital Signs Temp 97.7 F 12/19/16 04:11 Pulse 58 L 12/19/16 04:11 Resp 16 12/19/16 04:11 BP 107/62 12/19/16 04:11 Pulse Ox 95 12/19/16 04:11 Weight - Most Recent: 151 lb 6 oz I&O - Last 24 hours: Intake & Output 12/18/16 12/19/16 12/19/16 22:59 06:59 14:59 Intake Total 120 120 Balance 120 120 Med Orders - Current: Current Medications Acetaminophen (Tylenol) 650 mg PO Q4H PRN PRN Reason: mild pain or fever Last Admin: 12/18/16 08:18 Dose: 650 mg Benzocaine/Menthol (Dermoplast Pain Relief Bryant) 0 gm TOP ASDIRECTED PRN PRN Reason: Perineal Comfort Measure Last Admin: 12/17/16 18:00 Dose: 1 can Docusate Sodium (Colace) 100 mg PO BID PRN PRN Reason: Constipation Last Admin: 12/18/16 20:35 Dose: 100 mg Emollient Ointment (Lansinoh Hpa) 0 gm TOP ASDIRECTED PRN PRN Reason: Sore Nipples Ibuprofen (Motrin) 600 mg PO Q4H PRN PRN Reason: Mild pain or fever Last Admin: 12/19/16 07:47 Dose: 600 mg Witch Brenda (Tucks) 1 pad TOP ASDIRECTED PRN PRN Reason: Hemorrhoid pain Last Admin: 12/17/16 18:00 Dose: 1 box Discontinued Medications Acetaminophen (Tylenol) 650 mg PO Q4H PRN PRN Reason: Pain (mild 1-3) Ampicillin Sodium (Ampicillin) Confirm Administered Dose 2 gm .ROUTE .STK-MED ONE Stop: 12/17/16 13:52 Last Admin: 12/17/16 14:21 Dose: Not Given Diphenhydramine HCl (Benadryl) 25 mg IVPUSH Q6H PRN PRN Reason: Pruritis Ephedrine Sulfate (Ephedrine Sulfate) 5 mg IVPUSH ASDIRECTED PRN PRN Reason: Hypotension Fentanyl (Sublimaze) 100 mcg EPIDUR Q3H PRN PRN Reason: Pain Last Admin: 12/17/16 14:33 Dose: 100 mcg Fentanyl/Bupivacaine HCl (Fentanyl/Bupivacaine/Ns 2 Mcg-0.125% 100 Ml) 100 ml EPIDUR ASDIRECTED [facility] Last Admin: 12/17/16 14:34 Dose: 100 ml Lactated Ringer's (Ringers, Lactated) 1,000 mls @ 125 mls/hr IV ASDIRECTED [facility] Last Admin: 12/17/16 14:51 Dose: 999 mls/hr Ampicillin Sodium 2 gm/ Sodium (Chloride) 100 mls @ 200 mls/hr IV ONETIME ONE Stop: 12/17/16 12:29 Last Admin: 12/17/16 14:00 Dose: 200 mls/hr Lactated Ringer's (Ringers, Lactated) 500 mls @ 500 mls/hr IV .BOLUS ONE Stop: 12/17/16 12:35 Last Admin: 12/17/16 12:25 Dose: 500 mls/hr Ampicillin Sodium 1 gm/ Sodium (Chloride) 100 mls @ 200 mls/hr IV Q4H [facility] Last Admin: 12/17/16 17:23 Dose: Not Given Sodium Chloride (Normal Saline) Confirm Administered Dose 100 mls @ as directed .ROUTE .STK-MED ONE Stop: 12/17/16 13:52 Last Admin: 12/17/16 14:21 Dose: Not Given Lactated Ringer's (Ringers, Lactated) 1,000 mls @ 100 mls/hr IV ASDIRECTED [facility] Oxytocin/Lactated Ringer's (Pitocin In Lr 10 Units/1,000 Ml) 10 unit in 1,000 mls @ 3,000 mls/hr IV ASDIRECTED NORA; 500 MUNITS/MIN PRN Reason: Protocol Last Admin: 12/17/16 16:15 Dose: 500 munits/min, 3,000 mls/hr Ondansetron HCl (Zofran) 4 mg IVPUSH Q4H PRN PRN Reason: Nausea/Vomiting Ondansetron HCl (Zofran) 4 mg IVPUSH ONETIME PRN PRN Reason: Nausea/Vomiting Oxytocin (Pitocin) Confirm Administered Dose 10 unit .ROUTE .STK-MED ONE Stop: 12/17/16 15:59 Last Admin: 12/17/16 16:14 Dose: 10 unit Prenat Multivit/[place]/Iron/Folic Ac ( Plus Iron) 1 each PO DAILY NORA Sodium Chloride (Saline Flush) 10 ml FLUSH ASDIRECTED PRN PRN Reason: Keep Vein Open Sodium Chloride (Saline Flush) 10 ml FLUSH ASDIRECTED PRN PRN Reason: Keep Vein Open *Q Meaningful Use (DIS) - VTE *Q VTE Criteria *Q: - Stroke *Q Stroke Criteria *Q: - AMI *Q AMI Criteria *Q:
[2016-12-19 16:25] VITALS: BP 106/77
== END 2016-12-19 16:20 | disposition home or self-care (01) | DRG 560 ==
LOC: JD.OBCHECK 10:35 → JD.OB 10:39 → JD.OBCHECK 13:44 → JD.OB 13:45 → OBSVTOIN 16:11
PROVIDERS: ADMIT Obstetrics & Gynecology; ATTEND Obstetrics & Gynecology
PROC: 10E0XZZ Delivery of Products of Conception, External Approach (ICD-10-PCS; principal; 2016-12-17)
PROC: 10907ZC Drainage of Amniotic Fluid, Therapeutic from Products of Conception, Via Natural or Artificial Opening (ICD-10-PCS; 2016-12-17)
PROC: 0HQ9XZZ Repair Perineum Skin, External Approach (ICD-10-PCS; 2016-12-17)
PROC: 00HU33Z Insertion of Infusion Device into Spinal Canal, Percutaneous Approach (ICD-10-PCS; 2016-12-17)
PROC: 3E0R3CZ (ICD-10-PCS; 2016-12-17)
DX: O99.824 Streptococcus B carrier state complicating childbirth (principal); O70.0 First degree perineal laceration during delivery; Z3A.38 38 weeks gestation of pregnancy; Z37.0 Single live birth
CPT/HCPCS: 36415; 85025; 86850; 86900; 86901; A9270-GY; J0290; J2590; J3010; J7030; J7120